=== PATIENT | female | born 1940 | race Native Hawaiian/Other Pacific Islander ===

== ENCOUNTER 2017-05-29 06:47 | Day surgery (SDC) | payer MEDICARE ==
[2017-05-29 07:17] VITALS: BMI 28.3
[2017-05-29] MEDS ORDERED: Lactated Ringer's 500 ML IV ONE (08:07)
--- NOTE | 2017-05-29 08:09 | CP.SDSHP ---
Same Day Surgery H & P - History Proposed Procedure: Colonoscopy Pre-Op Diagnosis: Surveillance of colon polyps - Previous Medical/Surgical History Cardiac: Hypertension, ASHD/CAD, Angina Endocrine/Metabolic: Diabetes Previous Surgical History: Appendectomy. Thyroid - Allergies Allergies: Allergies Penicillins Allergy (Verified 05/29/17 07:15) RASH - Current Medications Current Medications: reviewed, per reconciliation - Physical Exam General Appearance: wdwn nad Vital Signs: Vital Signs 05/29/17 07:17 Temperature 98 F Pulse Rate 66 Respiratory 18 Rate Blood Pressure 142/62 O2 Sat by Pulse 97 Oximetry Mental Status: Alert & Oriented x3 Heart: WNL Lungs: WNL GI: WNL - {Optional Preform as Required} Abdomen: WNL - Impression Impression: History of colon polyps Pt. Evaluated Today:Candidate for Anesthesia & Procedure: Yes - Date & Time Date: 05/29/17 Time: 08:09 Short Stay Discharge - Short Stay Discharge Admitting Diagnosis/Reason for Visit: SCREENING Disposition: HOME/ ROUTINE
[2017-05-29] MEDS ORDERED: Lidocaine Hydrochloride 5 ML INJ ONE (08:10)
[2017-05-29] MEDS ORDERED: Propofol 10 mg/ml Inj (20 ML) ONE (08:10)
[2017-05-29] MEDS ORDERED: Etomidate 20 mg/10ml Inj IV ONE (08:11)
[2017-05-29] MEDS ORDERED: Atropine 0.4 mg/ml Inj (1 mL) ONE (08:20)
[2017-05-29 08:58] VITALS: RESP 18
[2017-05-29 09:26] VITALS: TEMP 97; O2SAT 99
[2017-05-29 09:35] VITALS: BP 133/58; PULSE 65
== END 2017-05-29 09:28 | disposition home or self-care (01) ==
LOC: C.ENDO 06:47
PROVIDERS: ATTEND Internal Medicine Gastroenterology
DX: Z12.11 Encounter for screening for malignant neoplasm of colon (principal); Z86.010 Personal history of colon polyps; K64.0 First degree hemorrhoids; E11.9 Type 2 diabetes mellitus without complications
CPT/HCPCS: 82948; G0105; J0461; J2704; J7120